=== PATIENT | female | born 1975 | race Asian ===

== ENCOUNTER 2016-07-19 17:28 | Observation (INO) | payer BC ==
[~2016-07-19] VITALS: Ht 165.1 cm; Wt 68.9 kg
[~2016-07-19 17:28] MED LIST: FERROUS FUMARA325 MG OR
[2016-07-19 18:22] VITALS: BP 114/58; TEMP 98.5; Ht 165.1 cm; Wt 68.9 kg
[2016-07-19 18:27] LABS: PLATELET COUNT 299 K/uL (152-353)
[2016-07-19 19:20] LABS: POTASSIUM 2.7 mmol/L (3.6-5.2); SODIUM 135 mmol/L (136-145)
[2016-07-19 20:00] VITALS: BP 99/49; TEMP 98.1
[2016-07-20] VITALS: BP 109/63; TEMP 98.2
[2016-07-20 04:00] VITALS: BP 94/55; TEMP 97.8
[2016-07-20 08:14] VITALS: BP 98/51; TEMP 97.8
[2016-07-20 12:00] VITALS: BP 120/79; TEMP 98.5
[2016-07-20 15:57] VITALS: BP 95/63; TEMP 98.6
[2016-07-20 18:13] LABS: PLATELET COUNT 286 K/uL (152-353)
[2016-07-20 18:46] LABS: POTASSIUM 3.3 mmol/L (3.6-5.2); SODIUM 136 mmol/L (136-145)
[2016-07-20 20:00] VITALS: BP 109/74; TEMP 98.9
== END 2016-07-20 21:50 | disposition home or self-care (01) ==
LOC: MED/SURG 17:28
PROVIDERS: ADMIT Family Medicine
PROC: 30233N1 Transfusion of Nonautologous Red Blood Cells into Peripheral Vein, Percutaneous Approach (ICD-10-PCS; principal; 2016-07-19)
PROC: 30233N1 Transfusion of Nonautologous Red Blood Cells into Peripheral Vein, Percutaneous Approach (ICD-10-PCS; 2016-07-20)
DX: D50.8 Other iron deficiency anemias (principal); R51 Headache; R53.1 Weakness; R53.83 Other fatigue; E55.9 Vitamin D deficiency, unspecified; E53.9 Vitamin B deficiency, unspecified
CPT/HCPCS: 36415; 36430; 36591; 80053; 85027; 86850; 86900; 86901; 86922; 96365; 96366; 99220; G0378; G0379; P9016

== ENCOUNTER 2016-08-01 11:34 | Outpatient (CLI) | payer BC ==
[~2016-08-01] VITALS: Ht 165.1 cm; Wt 68.9 kg
[2016-08-01 11:40] VITALS: BP 99/69; TEMP 98.6
[2016-08-01 13:10] VITALS: BP 98/64; TEMP 98.6
== END 2016-08-01 19:09 | disposition home or self-care (01) ==
LOC: INF 11:34
DX: D64.89 Other specified anemias (principal)
CPT/HCPCS: 96365; Q0138

== ENCOUNTER 2016-08-09 09:01 | Outpatient (CLI) | payer BC ==
[~2016-08-09] VITALS: Ht 162.6 cm; Wt 68.9 kg
[2016-08-09 09:10] VITALS: BP 95/56; TEMP 97.8
[2016-08-09 11:00] VITALS: BP 107/53; TEMP 98
== END 2016-08-09 19:13 | disposition home or self-care (01) ==
LOC: INF 09:01
DX: D64.89 Other specified anemias (principal)
CPT/HCPCS: 96365; Q0138

== ENCOUNTER 2017-01-12 13:56 | Inpatient (IN) | payer BC ==
[~2017-01-12] VITALS: Ht 165.1 cm; Wt 73.5 kg
[2017-01-12 16:00] VITALS: BP 93/62; TEMP 98.6
[2017-01-12 16:02] VITALS: BP 95/67; TEMP 99; Ht 165.1 cm; Wt 73.5 kg
[2017-01-12 18:16] LABS: PLATELET COUNT 232 K/uL (152-353)
[2017-01-12 18:27] LABS: POTASSIUM 2.9 mmol/L (3.6-5.2); SODIUM 135 mmol/L (136-145)
[2017-01-12 20:00] VITALS: BP 99/55; TEMP 98.5
[2017-01-13] VITALS: BP 95/48; TEMP 98.2
[2017-01-13 04:00] VITALS: BP 89/37; TEMP 97.9
[2017-01-13 08:00] VITALS: BP 88/50; TEMP 98
[2017-01-13 11:44] VITALS: BP 102/56; TEMP 98.6
--- NOTE | 2017-01-13 14:14 | NUR ---
1100 DR SINGH NOTIFIED ABOUT LABS UANBLE TO BE OBTAINED. NEW ORDERS TO CONTACT DR STEEN FOR SURGICAL CONSULT. 1330 DR STEEN HERE FOR CONSULT FOR LINE PALCEMENT AT THIS TIME. CENRAL LINE PLACED PER DR STEEN INTO RT GROIN VIA STERILE TECHNIQUE. PT TOELRATED WELL
[2017-01-13 14:17] LABS: PLATELET COUNT 179 K/uL (152-353)
[2017-01-13 14:35] LABS: POTASSIUM 3.7 mmol/L (3.6-5.2); SODIUM 140 mmol/L (136-145)
[2017-01-13 16:00] VITALS: BP 92/52; TEMP 98.9
[2017-01-13 20:14] VITALS: BP 95/49; TEMP 99
[2017-01-14 00:22] VITALS: BP 90/50; TEMP 98.8
[2017-01-14 04:00] VITALS: BP 93/50; TEMP 98
[2017-01-14 06:03] LABS: POTASSIUM 3.1 mmol/L (3.6-5.2); SODIUM 138 mmol/L (136-145)
[2017-01-14 06:19] LABS: PLATELET COUNT 152 K/uL (152-353)
[2017-01-14 08:00] VITALS: BP 118/72; TEMP 98.3
--- NOTE | 2017-01-14 08:00 | NUR ---
DR SINGH NOTIFIED OF LAB RESULTS FROM THIS AM. NEW ORDERS GIVEN 1010- HGB AND HCT REPORTED TO DR SINGH.
--- NOTE | 2017-01-14 10:00 | NUR ---
PAD NOTED TO HAVE LIGHT BLEEDING NOTED TO PAD. DR SINGH AWARE.
[2017-01-14 12:00] VITALS: BP 110/61; TEMP 98.3
--- NOTE | 2017-01-14 12:00 | NUR ---
CALLED TO PT ROOM. PT C/O NAUSEA, SMALL AMOUNT OF CLEAR EMESIS NOTED TO BS, DR SINGH NOTIFIED AND MEDS GIVEN.
--- NOTE | 2017-01-14 15:00 | NUR ---
VERY SMALL AMOUNT OF BLOOD NOTED TO PAD. PT STATES SHE HASN'T BEEN BLEEDING ANY MORE SINCE THIS AM.
[2017-01-14 16:09] VITALS: BP 96/51; TEMP 98.7
[2017-01-14 20:00] VITALS: BP 94/62; TEMP 99.2
[2017-01-15] VITALS: BP 109/63; TEMP 98.6
[2017-01-15 04:00] VITALS: BP 95/60; TEMP 98.7
[2017-01-15 06:02] LABS: PLATELET COUNT 168 K/uL (152-353)
[2017-01-15 06:20] LABS: SODIUM 137 mmol/L (136-145)
--- NOTE | 2017-01-15 07:17 | NUR ---
01/15/17 0727 PT CHANGED 1 PAD DURING THE NIGHT WITH LIGHT BLEEDING.CC
[2017-01-15 08:00] VITALS: BP 98/61; TEMP 99
--- NOTE | 2017-01-15 11:13 | NUR ---
WENDI SMALL AMOUNT OF BLOOD NOTED TO PAD. NAD NOTED. PT STATES SHE FEELS BETTER TODAY.
[2017-01-15 12:00] VITALS: BP 104/62; TEMP 97.7
[2017-01-15 16:00] VITALS: BP 103/55; TEMP 98.2
--- NOTE | 2017-01-15 17:07 | NUR ---
DC INSTRUCTIONS GIVEN TO PT. PT INSTRUCTED TO CALL DR SINGH OFFICE FOR FOLLOW UP APPT AFTER FOLLOW UP WITH OBGYN. PT VERBALIZED UNDERSTANDING. PT INSTRUCTED ON APPT WITH OBGYN ON . CENTRAL LINE DC'D PER PROTOCOL AND SITE MONITORED. TIP SENT TO LAB FOR CULTURE. NAD NOTED. PT TOLERATED WELL. INSTRUCTED PT TO CALL FOR RIDE. PT AWAITING RIDE.
--- NOTE | 2017-01-15 17:47 | NUR ---
CENTRAL LINE SITE RECHECKED. NO ACTIVE BLEEDING NOTED. BANDAGE APPLLIED TIGHTLY.
--- NOTE | 2017-01-15 17:47 | NUR ---
PT LEFT VIA WC AT THIS TIME. NAD NOTED.
== END 2017-01-15 17:47 | disposition home or self-care (01) | DRG 690 ==
LOC: MED/SURG 13:56
PROVIDERS: ADMIT Family Medicine
PROC: 06HM33Z Insertion of Infusion Device into Right Femoral Vein, Percutaneous Approach (ICD-10-PCS; principal; 2017-01-13)
PROC: B54BZZA Ultrasonography of Right Lower Extremity Veins, Guidance (ICD-10-PCS; 2017-01-13)
PROC: 30243N1 Transfusion of Nonautologous Red Blood Cells into Central Vein, Percutaneous Approach (ICD-10-PCS; 2017-01-13)
DX: N39.0 Urinary tract infection, site not specified (principal); E86.0 Dehydration; I87.8 Other specified disorders of veins; D64.9 Anemia, unspecified; R42 Dizziness and giddiness; D50.0 Iron deficiency anemia secondary to blood loss (chronic); N30.01 Acute cystitis with hematuria; N92.0 Excessive and frequent menstruation with regular cycle
CPT/HCPCS: 36415; 36430; 36591; 80053; 81000; 83735; 85014; 85018; 85027; 86850; 86900; 86901; 86922; 87040; 87070; 87077; 87086; 87088; 87185; 87205; 96360; 96361; 96367; C1768; J1410; J3475; J3480; P9016

== ENCOUNTER 2017-04-06 12:56 | Inpatient (IN) | payer BC ==
[~2017-04-06] VITALS: Ht 165.1 cm; Wt 71.0 kg
[2017-04-06] VITALS (14 sets, daily range): BP systolic 98–126; BP diastolic 56–77; TEMP 97.8–99.4; Ht 165.1 cm; Wt 71.0 kg
[2017-04-06 14:10] LABS: PLATELET COUNT 415 K/uL (152-353)
[2017-04-06 14:14] LABS: POTASSIUM 3.5 mmol/L (3.6-5.2); SODIUM 138 mmol/L (136-145)
[2017-04-07] VITALS (18 sets, daily range): BP systolic 94–108; BP diastolic 56–75; TEMP 97–99.6
[2017-04-07 08:21] LABS: PLATELET COUNT 371 K/uL (152-353)
[2017-04-07 08:37] LABS: POTASSIUM 3.5 mmol/L (3.6-5.2); SODIUM 138 mmol/L (136-145)
[2017-04-07] MEDS ORDERED: FERROUS SULF325 MG PO (15:49)
[2017-04-08] VITALS: BP 97/54; TEMP 98.3
[2017-04-08 04:00] VITALS: BP 80/50; TEMP 98.4
[2017-04-08 06:08] LABS: PLATELET COUNT 330 K/uL (152-353)
[2017-04-08 06:38] LABS: SODIUM 137 mmol/L (136-145)
[2017-04-08 08:00] VITALS: BP 108/63; TEMP 98.4
[2017-04-08 12:00] VITALS: BP 100/63; TEMP 99
[2017-04-08 16:00] VITALS: BP 97/62; TEMP 99.1
== END 2017-04-08 21:10 | disposition home or self-care (01) | DRG 812 ==
LOC: ED 12:56 → ICU 14:40 → MED/SURG 04-07 16:30
PROVIDERS: Family Medicine
PROC: 30233N1 Transfusion of Nonautologous Red Blood Cells into Peripheral Vein, Percutaneous Approach (ICD-10-PCS; principal; 2017-04-06)
DX: D50.8 Other iron deficiency anemias (principal); K59.09 Other constipation; F32.89 Other specified depressive episodes; E87.6 Hypokalemia; R00.0 Tachycardia, unspecified; R06.09 Other forms of dyspnea
CPT/HCPCS: 36415; 36430; 80053; 81000; 82550; 82553; 82607; 82728; 82962; 83540; 83550; 83735; 84484; 85014; 85018; 85027; 85044; 86850; 86900; 86901; 86922; 93005; 99284; J3490; P9016

== ENCOUNTER 2017-04-23 09:36 | Outpatient (CLI) | payer BC ==
[~2017-04-23] VITALS: Ht 165.1 cm; Wt 73.1 kg
[~2017-04-23 09:36] MED LIST changes: +FERROUS SULF325 MG PO
[2017-04-23 09:55] VITALS: BP 102/70; TEMP 98.3
[2017-04-23 12:05] VITALS: BP 101/56; TEMP 98.3
== END 2017-04-23 12:10 | disposition home or self-care (01) ==
LOC: INF 09:36
DX: D64.89 Other specified anemias (principal); D50.8 Other iron deficiency anemias; K59.09 Other constipation
CPT/HCPCS: 96365; J2916

== ENCOUNTER 2017-05-01 08:56 | Outpatient (CLI) | payer BC ==
[~2017-05-01] VITALS: Ht 165.1 cm; Wt 73.0 kg
[2017-05-01 09:00] VITALS: BP 102/64; TEMP 97.9
== END 2017-05-01 10:40 | disposition home or self-care (01) ==
LOC: INF 08:56
DX: D64.89 Other specified anemias (principal); D50.8 Other iron deficiency anemias; K59.09 Other constipation
CPT/HCPCS: 96365; J2916

== ENCOUNTER 2017-05-29 10:16 | Outpatient (CLI) | payer BC ==
[~2017-05-29] VITALS: Ht 165.1 cm; Wt 73.1 kg
[2017-05-29 12:06] VITALS: BP 96/55; TEMP 98.7
== END 2017-05-29 12:06 | disposition home or self-care (01) ==
LOC: INF 10:16
DX: D50.8 Other iron deficiency anemias (principal); K59.09 Other constipation; D64.89 Other specified anemias
CPT/HCPCS: 96365; J2916

== ENCOUNTER 2017-06-05 10:04 | Outpatient (CLI) | payer BC ==
[~2017-06-05] VITALS: Ht 165.1 cm; Wt 73.1 kg
[2017-06-05 10:20] VITALS: BP 112/60; TEMP 98.2
[2017-06-05 11:50] VITALS: BP 113/62
== END 2017-06-05 11:55 | disposition home or self-care (01) ==
LOC: INF 10:04
DX: D64.89 Other specified anemias (principal); D50.8 Other iron deficiency anemias; K59.09 Other constipation
CPT/HCPCS: 96365; J2916

== ENCOUNTER 2017-06-13 13:06 | Outpatient (CLI) | payer BC ==
[~2017-06-13] VITALS: Ht 165.1 cm; Wt 73.1 kg
[2017-06-13 14:35] VITALS: BP 104/58; TEMP 98.1
== END 2017-06-13 14:00 | disposition home or self-care (01) ==
LOC: INF 13:06
DX: D64.89 Other specified anemias (principal); D50.8 Other iron deficiency anemias; K59.09 Other constipation
CPT/HCPCS: J2916

== ENCOUNTER 2017-09-26 08:20 | Emergency (ER) | payer BC ==
[~2017-09-26] VITALS: Ht 165.1 cm; Wt 68.0 kg
[2017-09-26 08:36] VITALS: BP 101/49; TEMP 97.9
[2017-09-26 09:36] LABS: PLATELET COUNT 549 K/uL (152-353)
[2017-09-26 10:06] LABS: POTASSIUM 3.3 mmol/L (3.6-5.2); SODIUM 140 mmol/L (136-145)
[2017-09-26 13:00] VITALS: BP 108/54
== END 2017-09-26 13:04 | disposition home or self-care (01) ==
LOC: ED 08:20 → MED/SURG 10:30 → ED 10:30
PROVIDERS: Family Medicine
DX: D64.89 Other specified anemias (principal); R51 Headache
CPT/HCPCS: 36415; 80053; 84702; 85027; 86850; 86900; 86901; 86922; 96372; 99283; J1885; J2405; P9016

== ENCOUNTER 2017-09-26 13:00 | Outpatient (CLI) | payer BC ==
[~2017-09-26] VITALS: Ht 165.1 cm; Wt 68.0 kg
== END 2017-09-26 22:49 | disposition home or self-care (01) ==
LOC: INF 13:00
DX: D64.89 Other specified anemias (principal)
CPT/HCPCS: 36415; 36430; 85014; 85018

== ENCOUNTER 2017-09-30 12:31 | Outpatient (CLI) | payer BC | END 2017-09-30 21:49 | disposition home or self-care (01) | LOC: LAB 12:31 | DX: D64.9 Anemia, unspecified (principal) | CPT/HCPCS: 82728; 83540; 83550 ==

== ENCOUNTER 2017-11-16 12:48 | Outpatient (CLI) | payer BC | END 2017-11-16 13:10 | disposition short-term general hospital (02) | LOC: AMB 12:48 | DX: R55 Syncope and collapse (principal); R07.89 Other chest pain; R51 Headache | CPT/HCPCS: A0425; A0427 ==

== ENCOUNTER 2017-12-20 09:44 | Outpatient (CLI) | payer BC ==
[~2017-12-20] VITALS: Ht 162.6 cm; Wt 69.9 kg
== END 2017-12-20 19:07 | disposition home or self-care (01) ==
LOC: INF 09:44
DX: D64.89 Other specified anemias (principal)
CPT/HCPCS: 85014; 85018; 96365; J2916

== ENCOUNTER 2018-06-27 16:04 | Observation (INO) | payer BC ==
[~2018-06-27] VITALS: Ht 165.1 cm; Wt 71.2 kg
[2018-06-27 16:10] VITALS: BP 112/56; TEMP 97.9
[2018-06-27 16:20] VITALS: BP 99/60
[2018-06-27 17:20] VITALS: BP 104/68
[2018-06-27 17:47] LABS: PLATELET COUNT 386 K/uL (152-353)
[2018-06-27 17:56] LABS: POTASSIUM 3.6 mmol/L (3.6-5.2)
[2018-06-27 18:20] VITALS: BP 93/61
[2018-06-27 21:39] VITALS: BP 105/62; TEMP 99.9; Ht 165.1 cm; Wt 71.2 kg
[2018-06-27] MEDS ORDERED: FERROUS SULF325 M1 PO (21:55)
--- NOTE | 2018-06-27 22:48 | NUR ---
06/27/182021: RECEIVED PT FROM ER BY WHEELCHAIR TO ROOM 1106. PT TO RECEIVE 4 UNITS OF PRBC'S. PT HAS AN IV IN HER LEFT EJ PUT IN BY ER. PT ALERT ORIENTED X4.
[2018-06-28] VITALS: BP 100/57; TEMP 99
[2018-06-28 04:00] VITALS: BP 98/56; TEMP 98.5
[2018-06-28 08:07] VITALS: BP 99/57; TEMP 98.1
[2018-06-28 12:05] VITALS: BP 104/56; TEMP 98.3
[2018-06-28 16:08] VITALS: BP 131/79; TEMP 97.9
[2018-06-28 20:03] VITALS: BP 96/62; TEMP 98.3
== END 2018-06-28 21:00 | disposition home or self-care (01) ==
LOC: ED 16:04 → MED/SURG 18:17
PROVIDERS: Family Medicine; ADMIT Allergy & Immunology
PROC: 30233N1 Transfusion of Nonautologous Red Blood Cells into Peripheral Vein, Percutaneous Approach (ICD-10-PCS; principal; 2018-06-28)
DX: D64.89 Other specified anemias (principal); R53.1 Weakness
CPT/HCPCS: 36415; 36430; 80053; 81000; 85014; 85018; 85027; 86850; 86900; 86901; 86922; 87086; 87088; 87502; 99220; 99284; G0378; P9016

== ENCOUNTER 2020-03-17 22:16 | Emergency (ER) | payer BC, OTHER ==
[~2020-03-17] VITALS: Ht 165.1 cm; Wt 70.3 kg
[~2020-03-17 22:16] MED LIST changes: +FERROUS SULF325 M1 PO
[2020-03-17 23:27] LABS: PLATELET COUNT 51 K/uL (152-353)
[2020-03-17 23:28] LABS: POTASSIUM 3.4 mmol/L (3.6-5.2); SODIUM 138 mmol/L (136-145)
[2020-03-18 02:41] VITALS: BP 112/78; TEMP 98.5
== END 2020-03-18 02:55 | disposition short-term general hospital (02) ==
LOC: ED 22:16
PROVIDERS: Hospitalist
DX: D50.8 Other iron deficiency anemias (principal)
CPT/HCPCS: 80053; 82550; 83880; 84484; 85027; 85610; 85730; 86850; 86900; 86901; 86922; 93005; 96360; 96375; 99284; J1885; J2405

== ENCOUNTER 2020-11-15 17:15 | Observation (INO) | payer BC, OTHER ==
[~2020-11-15] VITALS: Ht 162.6 cm; Wt 68.1 kg
[2020-11-15 17:49] VITALS: BP 101/57; TEMP 101.9; Ht 162.6 cm; Wt 68.1 kg
[2020-11-15 18:25] LABS: PLATELET COUNT 208 K/uL (152-353)
[2020-11-15 19:13] LABS: POTASSIUM 2.6 mmol/L (3.6-5.2)
[2020-11-15 20:00] VITALS: BP 104/60; TEMP 98.9
[2020-11-16] VITALS (7 sets, daily range): BP systolic 84–97; BP diastolic 47–58; TEMP 97.8–99.5
[2020-11-16 19:11] LABS: PLATELET COUNT 205 K/uL (152-353)
[2020-11-16 19:23] LABS: POTASSIUM 3.6 mmol/L (3.6-5.2)
== END 2020-11-16 22:10 | disposition home or self-care (01) ==
LOC: MED/SURG 17:15
PROVIDERS: ADMIT Family Medicine; ATTEND Family Medicine
DX: N39.0 Urinary tract infection, site not specified (principal); E86.0 Dehydration; D64.89 Other specified anemias; R19.7 Diarrhea, unspecified; R53.1 Weakness; D50.8 Other iron deficiency anemias
CPT/HCPCS: 36415; 80053; 81000; 82728; 83036; 83540; 83550; 83735; 84100; 85027; 87040; 87088; 87635; 96360; 96361; 96365; 96367; 96375; 99220; G0378; G0379; J2543; J3475; J3480; U0003